=== PATIENT | male | born 1960 | race Caucasian/White ===

== ENCOUNTER 2022-03-04 17:14 | Emergency (ER) | payer OTHER ==
[~2022-03-04] VITALS: Ht 177.8 cm; Wt 88.6 kg
[~2022-03-04 17:14] MED LIST: ASPIRIN LOW DOS81 MG PO; COQ-10100 M1 PO; COREG6.25 MG PO; FISH OIL1 CAP PO; FLEXERIL OR; FLEXERIL PO; LIPITOR20 M1 PO; MULTI VITAMN PO; NAPROSYN500 MG PO; PERCOCET 5/325M1 TAB OR; ZESTRIL/PRINIV2.5 MG PO; ZESTRIL5 M1 PO
[2022-03-04 18:25] VITALS: BP 124/68
[2022-03-04 18:30] VITALS: BP 119/70
[2022-03-04 18:39] LABS: HEMATOCRIT 47.2 % (39.0-50.0); HEMOGLOBIN 15.7 g/dl (14.0-18.0); IMMATURE GRANULOCYTES 0.4 % (0.0-5.0); MEAN CORPUSCULAR HGB 31.3 pG CALC (26.0-32.0); MEAN CORPUSCULAR HGB CONC 33.3 g/dL CAL (32.0-36.0); NEUT# 15.21 thou/uL (1.82-7.42); RED BLOOD COUNT 5.02 mill/uL (4.70-6.10); RED CELL DISTRI WIDTH 13.3 % (11.5-15.5)
[2022-03-04 19:00] VITALS: BP 120/80
[2022-03-04 19:00] LABS: ALBUMIN 4.8 g/dL (3.2-5.0); ALKALINE PHOSPHATASE 92 u/l (38-126); BUN 15 mg/dL (8-23); BUN/CREATININE RATIO 17 (12-20 (CALC)); CARBON DIOXIDE 22 mmol/l (22-30); CREATININE 0.9 mg/dL (0.7-1.3); GFR FOR AFR.AMER. > 60 ML/MIN (>=60 (CALC)); GFR OTHER RACES > 60 ML/MIN (>=60 (CALC)); SGOT/AST 28 u/l (19-48); TOTAL PROTEIN 7.7 g/dL (6.3-8.2)
[2022-03-04 19:22] LABS: ANION GAP 16 (6-22 (CALC)); BILIRUBIN, TOTAL 0.9 mg/dL (0.0-1.4); CHLORIDE 108 mmol/l (95-108); POTASSIUM 4.6 mmol/l (3.5-5.1); SODIUM 141 mmol/l (137-146)
[2022-03-04 19:30] VITALS: BP 140/76
[2022-03-04 20:30] VITALS: BP 125/72
[2022-03-04] MEDS ORDERED: VOLTAREN75 MG PO (20:52)
[2022-03-04] MEDS ORDERED: AMBIEN5 MG PO (20:52)
[2022-03-04] MEDS ORDERED: TRAMADOL HCL50 MG PO (20:52)
[2022-03-04 21:03] VITALS: BP 125/72
== END 2022-03-04 21:21 | disposition home or self-care (01) | DRG 605 ==
LOC: ED 17:14
PROVIDERS: Emergency Medicine
DX: S20.212A Contusion of left front wall of thorax, initial encounter (principal); S70.12XA Contusion of left thigh, initial encounter; I10 Essential (primary) hypertension; E78.5 Hyperlipidemia, unspecified; V28.4XXA Motorcycle driver injured in noncollision transport accident in traffic accident, initial encounter
CPT/HCPCS: Q9967